=== PATIENT | male | born 1945 | race Caucasian/White ===

== ENCOUNTER → 2023-11-23 08:33 | Day surgery (SDC) | payer MEDICARE, OTHER, SELFPAY ==
[2023-11-23 09:33] VITALS: BMI 29.1
--- NOTE | 2023-11-24 17:25 | ITS.CL.CARDI ---
Hall Clerk - Cardioversion
Cardioversion
Procedure Report:
Date of Procedure: 11/23/23
Procedure: Cardioversion
Indication: Symptomatic atrial flutter
Performing Physician: Xenia Gregory DO [facility]
Anticoagulation: Eliquis
Technique: The patient was brought to the holding area. Signed informed consent was obtained. A time out was called and performed. The patient was anesthetized by the anesthesia service. A transesophageal echocardiogram was performed; no left
atrial appendage thrombus. R2 pads were placed anteriorly and posteriorly. A 150 J synchronized biphasic shock restored normal sinus rhythm without significant bradycardia. There were no complications.
Conclusion: Uncomplicated cardioversion from atrial flutter to sinus rhythm.
Recommendation: Routine post cardioversion care. Continue intermediate frame tender anticoagulation. Updated patient's daughter Milli
== END ==
LOC: CATH 08:33
PROVIDERS: ATTENDING PHYSICIAN Internal Medicine Cardiovascular Disease; FAMILY PHYSICIAN Internal Medicine; OTHER PHYSICIAN Internal Medicine Cardiovascular Disease
DX: I08.3 Combined rheumatic disorders of mitral, aortic and tricuspid valves (principal); I48.92 Unspecified atrial flutter; I48.91 Unspecified atrial fibrillation; I45.10 Unspecified right bundle-branch block; Z87.891 Personal history of nicotine dependence; Z82.49 Family history of ischemic heart disease and other diseases of the circulatory system; Z79.01 Long term (current) use of anticoagulants
CPT/HCPCS: 93325; 93320; 93312; 92960; 93005

== ENCOUNTER → 2023-12-12 11:10 | Outpatient (REF) | payer MEDICARE, OTHER, SELFPAY | LOC: DHCBS HW 11:10 | PROVIDERS: ATTENDING PHYSICIAN Internal Medicine Cardiovascular Disease; FAMILY PHYSICIAN Internal Medicine | DX: I35.8 Other nonrheumatic aortic valve disorders (principal); I48.3 Typical atrial flutter; I77.810 Thoracic aortic ectasia; I35.1 Nonrheumatic aortic (valve) insufficiency | CPT/HCPCS: 93306 ==

== ENCOUNTER → 2024-01-15 12:00 | Outpatient (REF) | payer MEDICARE, OTHER, SELFPAY | LOC: DHSLP 12:00 | PROVIDERS: ATTENDING PHYSICIAN Internal Medicine Cardiovascular Disease; FAMILY PHYSICIAN Internal Medicine | DX: G47.33 Obstructive sleep apnea (adult) (pediatric) (principal) | CPT/HCPCS: 95800 ==

== ENCOUNTER 2024-02-28 08:48 | Day surgery (SDC) | payer MEDICARE, OTHER, SELFPAY ==
[2024-02-08 11:21] VITALS: BMI 28.1
[2024-02-28] VITALS (9 sets, daily range): BP systolic 123–159; BP diastolic 67–89
[2024-02-28] MEDS: NSS 500 IV (10:28)
--- NOTE | 2024-02-28 16:34 | ITS.CL.ABL ---
Sizing Machine And Drier Operator - Ablation
Ablation
Procedure Report:
Procedure Date: 02/28/2024
Procedure
Electrophysiology Study, with RA, CS pacing and recording
Radiofrequency Ablation of Counterclockwise Cavotricuspid Isthmus-dependent Right Atrial Flutter
Three-dimensional Electroanatomic Mapping and Navigation
Patient History
See H&P for complete details
Patient is a pleasant 79-year-old male with past medical history significant for aortic valve sclerosis, right bundle branch block, dyslipidemia, and symptomatic paroxysmal atrial flutter. EKG of atrial flutter demonstrated typical counterclockwise
atrial flutter with variable AV conduction. No evidence of atrial fibrillation noted on EKG or event monitor following zoroastrianism of sinus rhythm prior to procedure today.
Indications:
Symptomatic paroxysmal atrial flutter, typical
Method
After informed consent was obtained, the patient was brought to the EP lab in a post-absorptive, non-sedated state. A peripheral IV was in place. Continuous electrocardiography, blood pressure and pulse oximetry monitoring were initiated and
cardioversion / defibrillator patch electrodes were positioned on the chest in an anterior-posterior orientation. Sedation was administered via the anesthesia services. A time-out was called. Local anesthesia was administered at the right and left
femoral vein access sites. Vascular access was achieved using modified Seldinger technique, and 3 sheaths were placed.
The patient entered the room in sinus rhythm. A multipolar catheter were advanced to the coronary sinus. A mapping / ablation catheter was used to record and pace. Intracardiac ultrasound (ICE) was utilized for structural assessment and monitoring.
Patient was noninducible for tachyarrhythmia.
Three-dimensional electroanatomic mapping was utilized. Catheter ablation in the right atrium was performed as described below. Transisthmus time was measured by pacing from ablation distal lateral to the cavotricuspid isthmus and measuring to
proximal CS; this was repeated pacing proximal CS and measuring to ablation distal. Following 3D mapping, ablation was initiated at the tricuspid annulus and ablation continued until a line was complete from the tricuspid valve annulus to the
IVC-RA junction. Clockwise and counterclockwise trans-isthmus times were determined, and RA activation patterns confirmed bidirectional block. Interval measurements in NSR were made. A waiting period was observed, after which the procedure was
concluded.
At the end of the procedure, all catheters and sheaths were removed, hemostasis was assured in the standard fashion with Vascade/Vascade MVP, and the patient was taken to the recovery area in stable condition.
Baseline Intervals:
Rhythm: Sinus rhythm
IL: 168 ms
QRS: 143 ms
QT: 446 ms
QTc: 465 ms
A-A: 920 ms
R-R: 920 ms
Post-Procedure Intervals:
IL: 177 ms
QRS: 141 ms
QT: 414 ms
QTc: 450 ms
A-A: 845 ms
R-R: 845 ms
AVWB: 350 ms
AVNERP: 600/240 ms
No arrhythmia was inducible post ablation
Mapping and Ablation
Utilizing electroanatomic three-dimensional navigation, a 3.5 mm tip WeGoOut SE irrigated ablation catheter was advanced to the right atrium with the assistance of an 11.5 Fr Agilis steerable long sheath. An electroanatomic three-dimensional map
of the right atrium was constructed, with careful attention to anatomic landmarks, including the coronary sinus, IVC-RA and SVC-RA junction, tricuspid valve annulus, and region of the His bundle electrogram.
An ablation line was created from the tricuspid annulus to the IVC in the 6:00 position (PUERTO RICAN clock). Power was titrated between 30 and 40 Nolasco. Tachycardia was noninducible prior to ablation or following ablation. The line was completed during
CS pacing, and bidirectional block was achieved. The ablation line was mapped to ensure widely spaced double potentials, and after a 20 minute waiting period, bidirectional block persisted.
Ablation Summary
Total ablation time: 8 minutes 32 seconds
Estimated Blood Loss
<10 mL
Fluoroscopy Time 1.1
Radiation Dose 3.3 mGy
DAP 0.315
Complications
None
Conclusions
- Successful ablation of the cavotricuspid isthmus for typical atrial flutter with bidirectional block
- No other inducible atrial arrhythmias
Recommendations
- Anticipate discharge home today
- Bedrest with straight leg precautions
- Resume anticoagulation tonight if patient/groins stable
- Continue remaining home medications as indicated
- Follow-up in clinic in 3 months or sooner if needed
Jose Perez,
Clinical Cardiac Electrophysiology
cc: Yane English MD
== END 2024-02-28 18:29 | disposition home or self-care (01) ==
LOC: CATH 08:48
PROVIDERS: ATTENDING PHYSICIAN Internal Medicine Cardiovascular Disease; FAMILY PHYSICIAN Internal Medicine
DX: I48.3 Typical atrial flutter (principal); I45.10 Unspecified right bundle-branch block; I47.19 Other supraventricular tachycardia; M19.90 Unspecified osteoarthritis, unspecified site; G47.00 Insomnia, unspecified; Z79.01 Long term (current) use of anticoagulants; Z87.891 Personal history of nicotine dependence; I25.9 Chronic ischemic heart disease, unspecified; I35.8 Other nonrheumatic aortic valve disorders; E78.5 Hyperlipidemia, unspecified
CPT/HCPCS: C1894; C1766; C2630; C1759; 76937; 93005; 93653; 93662; C1760

== ENCOUNTER → 2024-08-21 14:31 | Outpatient (REF) | payer MEDICARE, OTHER, SELFPAY | LOC: HWRAD 14:31 | PROVIDERS: ATTENDING PHYSICIAN Internal Medicine | DX: R10.9 Unspecified abdominal pain (principal); R19.7 Diarrhea, unspecified | CPT/HCPCS: 36415; 74177; 80053; 85025; Q9967 ==

== ENCOUNTER 2025-04-07 03:08 | Emergency (ER) | payer MEDICARE, OTHER, SELFPAY ==
[2025-04-07 03:10] VITALS: BP 144/76
[2025-04-07] MEDS: MORPHINE SULFATE 2 MG IV ×2 (03:40→04:46)
[2025-04-07 04:04] LABS: Hematocrit 48.6 % (39.0-52.0); Hemoglobin 17.4 g/dL (13.0-18.0); Mean Corp Hgb Conc. 35.8 g/dL (33.0-37.0); Mean Platelet Volume 9.8 fL (7.4-10.4); Platelet Count 173 10^3/uL (130-400); Red Blood Cell Count 5.28 10^6/uL (4.70-6.10); Red Cell Dist. Width 11.9 % (11.5-14.5); White Blood Cell Count 10.5 10^3/uL (4.8-10.8)
--- NOTE | 2025-04-07 04:12 | ED.GENMED ---
History of Present Illness
General
Chief Complaint: Abdominal Symptoms
Source: patient
Exam Limitations: none
Time Seen by Provider: 04/07/25 03:58
Nursing documentation reviewed up to this point in time: agreed with
History of Present Illness
History of Present Illness:
80-year-old male with a past medical history of right bundle branch block, presents to the emergency department today with concerns of epigastric abdominal pain and vomiting. Patient reports that this evening for dinner around 7 PM, he ate 'bad
soup 'and started to feel an onset of nausea. Patient reports that he had multiple episodes of vomiting and has been retching since. Patient reports that the pain started shortly after this. Patient believes the pain is from persistent vomiting.
He denies any fevers or chills. He denies any diarrhea or constipation. He denies any past history of intra-abdominal surgeries. He denies any chest pain or shortness of breath. He denies any dizziness or lightheadedness. The pain will
occasionally radiate to the back. He reports that he drinks a few alcoholic beverages a day but denies any history of alcohol use disorder. He denies any daily NSAID use. He denies any dark tarry stools or any hematemesis.
Review of Systems
Review of Systems
All Other Systems: ROS reviewed and negative except as documented in HPI and ROS
Phy Exam
Physical Exam
Physical Exam:
General: Patient is well appearing and in no acute distress; non-toxic
Skin: Warm and dry, no rashes or lesions
Head: Normocephalic, atraumatic
Eyes: Sclera non-icteric. EOMs intact. PERRLA.
Cardiac: Regular rate and rhythm, no murmurs
Pulm: Normal respiratory effort, no wheezes, rales, rhonchi
Abdomen: Positive Gomez sign, no palpable abdominal masses, normoactive bowel sounds
Musculoskeletal: No tenderness palpation of the external chest wall
Neuro: CN II-XII intact, no focal neurologic deficits.
Psychiatric: Appropriate mood and affect.
Course
Orders/Labs/Results
Orders:
Orders
04/07/25 03:37
Morphine Sulfate 2 mg IV NOW STA
04/07/25 03:53
Complete Blood Count/No Diff Urgent
04/07/25 03:54
CMP [Comprehensive Metabolic Panel] Urgent
Lipase Urgent
Comment: ADD ON
04/07/25 04:34
Morphine Sulfate 2 mg IV NOW STA
Ondansetron Injectable [Zofran] 4 mg IV NOW STA
US Abdomen Complete/Upper Urgent
Comment:
Reason For Exam: right upper quadrant pain
04/07/25 04:35
Electrocardiogram (*1) Urgent
Reason for Study: Abdominal Pain
EKG- Treatment ONCE
04/07/25 04:37
Add On- LAB Urgent
Tests Added?: lipase
04/07/25 04:40
Troponin I Urgent
04/07/25 04:53
0.9% Sodium Chloride 500 ml [Nss] 500 ml IV BOLUS
04/07/25 05:58
Ketorolac [Toradol] 15 mg IV NOW STA
Abnormal Lab Results
04/07/25 04/07/25
03:53 03:54
MCH 33.0 H pg
(27.0-31.0)
BUN 37 H mg/dl
(9-20)
Glucose 165 H mg/dl
(70-99)
Total Protein 8.6 H g/dl
(6.3-8.2)
Albumin 5.4 H g/dl
(3.5-5.0)
04/07/25 03:53
04/07/25 03:54
Vital Signs
Initial and Last Documented VS:
Initial Vital Signs
Pulse Resp BP Pulse Ox
60 18 144/76 99
04/07/25 03:10 04/07/25 03:10 04/07/25 03:10 04/07/25 03:10
Last Documented Vital Signs
Temp Pulse Resp BP Pulse Ox
97.7 F 64 14 152/78 97
04/07/25 04:30 04/07/25 05:56 04/07/25 05:56 04/07/25 05:56 04/07/25 05:56
MDM/Problems Addressed
Differential Diagnosis Includes:
Differentials include foodborne illness/gastroenteritis, biliary colic, acute cholecystitis, pancreatitis, gastritis, ACS
MDM/Problems Addressed:
80-year-old male with a past medical history of right bundle branch block, presents to the emergency department today with concerns of epigastric abdominal pain and vomiting. Patient reports that this evening for dinner around 7 PM, he ate 'bad
soup 'and started to feel an onset of nausea. On physical exam, he is well-appearing afebrile but he is very tender in the right upper quadrant. Initially his pain was controlled with morphine because I thought he was taking Eliquis however later
learned that he stopped this medication and his pain was further controlled with Toradol. He did go for ultrasound which showed multiple gallstones However his CMP does not show any evidence of obstructive pattern. Doubt acute cholecystitis.
Suspect biliary colic versus foodborne illness. Patient's symptoms are well-controlled and patient is requesting discharge. I think is reasonable. Patient states that he will follow-up with his PCP. Troponin is undetectable and ECG she is
unchanged, doubt ACS. Patient stable for discharge
*Pulse Oximetry
Patient hypoxic: no
*EKG
Interpreted by ED Provider?: Yes
EKG Intrepretation Date: 04/07/25
Interpretation: abnormal
Comparison EKG: no changes
Heart Rate: 58
Rate: bradycardiac
Rhythm: sinus
QRS Pattern: right bundle branch block
Ischemia: T-wave inversion (Unchanged and noted on previous EKGs)
*Critical Care Note
Total Time (30-74mins, 75-104mins- exclusive of procedures): Not Applicable
Data Reviewed
Review of Other/Old Records Reveals: Records (Reviewed history and physical from 02/09/2024 patient seen for paroxysmal a flutter, reviewed ER physician documentation from patient seen for increased heart rate found to have new onset of a flutter)
Source: patient and records
ED Attending Note
-
Portions of this chart may have been created with voice recognition software.� Occasional wrong word or��sound alike� substitutions may have occurred due to the inherent limitations of voice recognition software.
Discharge Plan
Departure
Patient Disposition: Home (Routine Discharge)
Date of Disposition: 04/07/25
Time of Disposition:
Patient with high blood pressure during this ER visit?: Yes
Condition: Good
Discharge Problem:
Epigastric abdominal pain
Instructions: Gallstones - Discharge instructions, Food poisoning - ED discharge instructions
Prescriptions:
No Action
zolpidem 10 mg tablet
10 mg PO HS PRN (Reason: sleep)
red yeast rice 600 mg Capsule
600 mg PO DAILY
[place] 3
2 g PO DAILY
Referrals:
Yane English MD [Family Provider, Internal Medicine]
Activity Restrictions/Additional Instructions:
Your CMP shows elevated BUN to creatinine ratio concerning for dehydration. You were given IV fluids. Your troponin is undetectable. Your ultrasound shows multiple gallstones.
Please follow-up with your primary care provider.
PLEASE RETURN EMERGENCY DEPARTMENT SHOULD YOU DEVELOP CHEST PAIN, SHORTNESS OF BREATH, RETURN OF YOUR RIGHT UPPER QUADRANT PAIN, INTRACTABLE NAUSEA OR VOMITING, FEVERS OR CHILLS, OR ANY OTHER SIGNS OR SYMPTOMS WORRISOME TO YOU.
Interventions
Interventions:
*Risk Screen - Suicide Last Done: 04/07/25 03:10
*General Assessment Last Done: 04/07/25 03:10
*Neglect/Abuse Screening Last Done: 04/07/25 03:10
*ED- Fall Risk Assessment Last Done: 04/07/25 04:30
*Nursing Disposition Last Done: 04/07/25 06:42
DN-Kqprba-Qsoqscvqnt Assessment Last Done: 04/07/25 04:30
Discharge Date and Time
Discharge Date/Time: 04/07/25 06:42
Print Language: LIBYAN
[2025-04-07 04:21] LABS: ALT (SGPT) 23 U/L (0-50); AST (SGOT) 34 U/L (17-59); Albumin 5.4 g/dl (3.5-5.0); Alkaline Phosphatase 55 U/L (38-126); Blood Urea Nitrogen 37 mg/dl (9-20); Carbon Dioxide 27 mmol/L (22-30); Chloride 104 mmol/L (98-107); Glucose 165 mg/dl (70-99); Potassium 4.4 mmol/L (3.5-5.1); Sodium 140 mmol/L (135-145); Total Bilirubin 1.1 mg/dl (0.2-1.3); Total Protein 8.6 g/dl (6.3-8.2); eGFR > 60.00
[2025-04-07 04:30] VITALS: BP 138/70; BMI 28.1
--- NOTE | 2025-04-07 04:34 | EDRN ---
Pt ate minestrone soup around [id number] last night. Around 1999, pt started vomiting 'only minestrone came up' and then he was dry heaving. Pt developed epigastric pain radiating into his back after this. Pain waxes and wanes. Pt had one episode
watery stool. 'It's like a knife in my epigastric area.' Pt denies nausea currently. No cp, sob, fever/chills.
[2025-04-07] MEDS: ZOFRAN 4 MG IV (04:44)
[2025-04-07 04:56] LABS: Lipase 150 U/L (23-300)
[2025-04-07 05:17] LABS: Troponin I < 0.012 ng/ml
[2025-04-07] MEDS: NSS 500 IV (05:52)
[2025-04-07 05:56] VITALS: BP 152/78
[2025-04-07] MEDS: TORADOL 15 MG IV (06:01)
== END 2025-04-07 06:42 | disposition home or self-care (01) ==
LOC: EMR 03:08
PROVIDERS: Physician Assistant; EMERGENCY PHYSICIAN Emergency Medicine; FAMILY PHYSICIAN Internal Medicine
DX: R10.13 Epigastric pain (principal); I45.10 Unspecified right bundle-branch block; R11.2 Nausea with vomiting, unspecified
CPT/HCPCS: 99284; 96374; 96375; 96376; 96361; 76700; 80053; 83690; 84484; 85027; 93005

== ENCOUNTER → 2025-08-20 16:20 | Outpatient (REF) | payer MEDICARE, OTHER, SELFPAY ==
[2025-08-20 17:17] LABS: Urine Character Clear (Clear)
[2025-08-20 17:19] LABS: Hematocrit 47.5 % (39.0-52.0); Hemoglobin 16.5 g/dL (13.0-18.0); Mean Corp Hgb Conc. 34.7 g/dL (33.0-37.0); Mean Corpuscular Volume 91.0 fL (80.0-94.0); Nucleated Red Blood Cells % 0 % (-); Platelet Count 153 10^3/uL (130-400); Red Cell Dist. Width 11.8 % (11.5-14.5)
[2025-08-20 17:33] LABS: Urine Squamous Cell 0-2 /LPF (Few)
[2025-08-20 17:38] LABS: ALT (SGPT) 21 U/L (0-50); AST (SGOT) 33 U/L (17-59); Albumin 4.6 g/dl (3.5-5.0); Alkaline Phosphatase 60 U/L (38-126); Blood Urea Nitrogen 15 mg/dl (9-20); Calcium 9.9 mg/dl (8.4-10.2); Carbon Dioxide 29 mmol/L (22-30); Chloride 99 mmol/L (98-107); Glucose 96 mg/dl (70-99); HDL Cholesterol 77 mg/dl; LDL Cholesterol, Calculated 123 mg/dl; Potassium 4.5 mmol/L (3.5-5.1); Sodium 134 mmol/L (135-145); Total Protein 7.5 g/dl (6.3-8.2); Very Low Density Lipoprotein 13 mg/dl (0-30); eGFR > 60.00
[2025-08-20 18:09] LABS: PSA, Total - Screen 3.48 ng/ml (0.0-4.0)
[2025-08-23 01:06] LABS: Lipoprotein a (Lp a) <6 mg/dL (<=29)
== END ==
LOC: REG 16:20
PROVIDERS: ATTENDING PHYSICIAN Internal Medicine
DX: D72.829 Elevated white blood cell count, unspecified (principal); K76.89 Other specified diseases of liver; R17 Unspecified jaundice; R39.15 Urgency of urination; Z86.79 Personal history of other diseases of the circulatory system; Z29.9 Encounter for prophylactic measures, unspecified
CPT/HCPCS: 36415; 80053; 80061; 81003; 81015; 82172; 83695; 84443; 85025; G0103